=== PATIENT | male | born 1985 | race Caucasian/White ===

== ENCOUNTER 2016-03-04 19:21 | Emergency (ER) | payer OTHER, SELFPAY ==
[2016-03-04] MEDS ORDERED: Naproxen 500 MG TAB ONE (20:18)
[2016-03-04] MEDS ORDERED: Oxymetazoline HCl 0.05% ( 15 ML ) ONE (20:18)
[2016-03-04] MEDS ORDERED: AMOXicillin 250 MG CAP ONE (20:18)
--- NOTE | 2016-03-04 20:39 | ERRECORD ---
[facility] EMERGENCY RECORD HPI COUGH (20:21 LLDO) CHIEF COMPLAINT: Patient presents for evaluation of cough, productive of yellow sputum, Patient presents for evaluation of fever face pain and pressure, sore throat, feverish. HISTORIAN: History provided by patient, going on for 2 weeks. LOCATION: Symptoms are generalized. QUALITY: Denies tightness, Denies wheezing, Pain is dull in nature, described as aching. SEVERITY: Maximum severity of symptoms moderate, Currently symptoms are moderate. TIME COURSE: Gradual onset of symptoms, There has been no change in the patient's symptoms over time, are constant. ASSOCIATED WITH: Associated symptoms reviewed, Associated with dyspnea on exertion, Associated with fever, Associated with nausea, Associated with upper respiratory infection, No associated wheezing, Associated with weakness. EXACERBATED BY: Patient's condition exacerbated by deep breaths, Patient's condition exacerbated by exercise, Patient's condition exacerbated by lying flat. RELIEVED BY: Patient's condition relieved by nothing. ROS (20:25 LLDO) CONSTITUTIONAL: Historian reports fatigue, reports fever. ENT: Historian reports sinus pain, reports sore throat. CARDIOVASCULAR: Historian reports dyspnea on exertion. RESPIRATORY: Historian reports cough, reports sputum. described as thick, Historian denies wheezing, yellow. GI: Historian reports nausea. MUSCULOSKELETAL: Historian reports myalgias. NOTES: All systems reviewed, negative except as described above. PAST MEDICAL HISTORY MEDICAL HISTORY: No past medical history, Flu vaccine not up to date, Tetanus immunization up to date, Pneumococcal vaccine not up to date. (19:31 MDEB) MALE SURGICAL HISTORY: Patient has no surgical history. (19:31 MDEB) PSYCHIATRIC HISTORY: Notes: DENIES. (19:31 MDEB) SOCIAL HISTORY: Patient denies alcohol use, Patient denies drug use, Patient is a former tobacco user, smoked cigarettes, Tobacco history notes: QUIT , Patient denies alcohol use, Patient denies drug use, Patient is a former tobacco user, smoked cigarettes, Patient quit smoking in the past year, Lives at home, alone. (19:31 MDEB) FAMILY HISTORY: Notes: MATERNAL CARDIAC HISTORY. (19:31 MDEB) &a-1R&a+25V*p+0X*p3464A*c202B*c15G*c2P*p-0X&a-25V&a+1R Name: Toni Whitmore : 1985 M31 MedRec: [id number] AcctNum: [id number] Prepared: FriMar 04, 2016 20:48 by Interface Page 1 of 3 pMD [facility] EMERGENCY RECORD NOTES: Nursing records reviewed, Agree with nursing records, Medication list reviewed. (20:28 LLDO) KNOWN ALLERGIES No Known Drug Allergies CURRENT MEDICATIONS No recorded medications VITAL SIGNS (19:28 MDEB) VITAL SIGNS: BP: 138/73, Pulse: 78, Resp: 20, Temp: 97.8 (Tympanic), Pain: 4, O2 sat: 99 on Room Air, Time: 03/04/2016 19:28. PHYSICAL EXAM (20:26 LLDO) CONSTITUTIONAL: Vital Signs Reviewed, Patient afebrile, Pulse normal, Blood pressure normal, Respiratory rate normal, Normal pulse oximetry, Patient appears, uncomfortable, Patient appears, in moderate pain distress, Patient alert and oriented to person, place and time, Nursing notes reviewed. ENT: Ear exam normal, Nose exam normal, Pharynx, injected bilaterally, with swelling bilaterally, Uvula exam normal, Sinus exam included findings of frontal sinuses with, tenderness bilaterally, mild pain, Maxillary sinuses with, tenderness on the left, erythema on the left, moderately severe. NECK: Neck exam included findings of normal range of motion, Trachea midline, Thyroid normal, no meningeal signs, Cervical adenopathy, diffuse, multiple nodes, tender, swollen. RESPIRATORY CHEST: Respiratory exam included findings of no respiratory distress, No wheezing, Rales present, Chest exam included findings of chest movement symmetrical, Chest expansion equal, RALES MILD AND SCATTERED. MEDICATION ADMINISTRATION SUMMARY Drug Name: *Afrin (oxymetazoline), Dose Ordered: 1-2 puff(s), Route: Nares Both, Status: Given, Time: 20:03/04/2016, Drug Name: Naprosyn, Dose Ordered: 500 mg, Route: Oral, Status: Given, Time: 20:03/04/2016, Drug Name: amoxicillin, Dose Ordered: 500 mg, Route: Oral, Status: Given, Time: 20:03/04/2016, *Additional information available in notes, Detailed record available in Medication Service section. PROBLEM LIST No recorded problems DIAGNOSIS (20:18 LLDO) &a-1R&a+25V*p+0X*c7097U*c202B*c15G*c2P*p-0X&a-25V&a+1R Name: Toni Whitmore : 1985 [facility] [place]: [id number] AcctNum: [id number] Prepared: FriMar 04, 2016 20:48 by Interface Page 2 of 3 pMD [facility] EMERGENCY RECORD FINAL: PRIMARY: ACUTE SINUSITIS UNSPECIFIED. PRESCRIPTION (20:20 LLDO) ibuprofen: TABLET : 800 mg : ORAL : Quantity: 1 Unit: tab(s) Route: ORAL Schedule: every 6 hours PRN Dispense: 100 Unit: tab(s) May substitute. Refills: 1 . amoxicillin: CAPSULE (HARD, SOFT, ETC.) : 500 mg : ORAL : Quantity: 1 Unit: cap(s) Route: ORAL Schedule: 3 times a day Dispense: 30 May substitute. Refills: No Refills . DISPOSITION PATIENT: Disposition Type: Discharge, Disposition: *Discharge Home. (20:18 ANNIKA) Patient left the department. (20:42 BRUNO) Yadav: BRUNO=ADRIANA Camp, Ry ROBLERO=MD Lauren, Jimmy HOFFMANEB=ADRIANA Chu, Cecelia &a-1R&a+25V*p+0X*r2091S*c202B*c15G*c2P*p-0X&a-25V&a+1R Name: Toni Whitmore : 1985 [facility] [place]: [id number] AcctNum: [id number] Prepared: FriMar 04, 2016 20:48 by Interface Page 3 of 3 pMD MTDD
--- NOTE | 2016-03-04 20:44 | PICIS ---
[facility] EMERGENCY RECORD TRIAGE (19:31 MDEB) PATIENT: NAME: Toni Whitmore, AGE: 31, GENDER: male, : Fri1985, TIME OF GREET: FriMar 04, 2016 19:22, PREFERRED LANGUAGE: [place]ican, RACE: WHITE, ETHNICITY: Not or , FALL RISK: NO, ECODE BILLING MAP: [facility] ER, SSN: [id number], Zip Code: [address], KG WEIGHT: 95.25, PHONE: , , , PERSON ID: [id number], PCP: NO PCP. (19:31 MDEB) TRIAGE NOTES: ST, FEVER, PRODUCTIVE COUGH, CONGESTION. (19:31 MDEB) COMPLAINT: FEVER, COUGH, SORE THROAT. (19:31 MDEB) ADMISSION: URGENCY: 4 Non Urgent, ADMISSION SOURCE: Home, TRANSPORT: Walk-in, BED: TRIAGE. (19:31 MDEB) PAIN: Patient complains of pain described as, aching, on a scale 0-10 patient rates pain as 3, Location FACIAL PAIN. (19:31 MDEB) IMMUNIZATIONS: Tetanus immunization up to date. (19:31 MDEB) TRIAGE SCREENING: Patient denies suicidal ideation, Patient denies presence of domestic violence. (19:31 MDEB) PROVIDERS: TRIAGE NURSE: Cecelia Chu RN. (19:31 MDEB) VITAL SIGNS: BP 138/73, Pulse 78, Resp 20, Temp 97.8, (Tympanic), Pain 4, O2 Sat 99, on Room Air, Time 03/04/2016 19:28. (19:28 MDEB) PREVIOUS VISIT ALLERGIES: No Known Drug Allergies. (19:31 MDEB) KNOWN ALLERGIES No Known Drug Allergies CURRENT MEDICATIONS No recorded medications VITAL SIGNS (19:28 MDEB) VITAL SIGNS: BP: 138/73, Pulse: 78, Resp: 20, Temp: 97.8 (Tympanic), Pain: 4, O2 sat: 99 on Room Air, Time: 03/04/2016 19:28. NURSING ASSESSMENT: ENT (20:43 BGAL) CONSTITUTIONAL: Patient arrives ambulatory, Gait steady, History obtained from patient, Patient appears comfortable, Patient cooperative, Patient alert, Oriented to person, place and time, Skin warm, Skin dry, Skin normal in color, Mucous membranes pink, Mucous membranes moist, Patient complains of sinus pressuer. PAIN: aching pain, frontal sinuses, Patient rates pain as 0 out of 10, Pain exacerbated by nothing, Nothing has been tried to alleviate the pain. ENT: Ear assessment findings include ear normal to inspection, Nasal assessment findings include nose normal to inspection, Sinuses normal, Nasal mucosa normal, Mouth and throat assessment findings include mouth inspection normal, Uvula normal, Tonsils normal, Mucous membranes pink, and moist, Able to swallow, Speech normal. RESPIRATORY/CHEST: Breath sounds clear, Respiratory assessment findings include respiratory effort easy, Respirations regular, &a-1R&a+25V*p+0X*g9119G*c202B*c15G*c2P*p-0X&a-25V&a+1R Name: Toni Whitmore : 1985 M31 MedRec: [id number] AcctNum: [id number] Prepared: FriMar 04, 2016 20:55 by Interface Page 1 of 5 pMD [facility] EMERGENCY RECORD Conversing normally, Neck and chest exam findings include trachea midline, Chest expansion equal, Chest movement symmetrical. SAFETY: Side rails up, Cart/Stretcher in lowest position, Family at bedside, Call light within reach, Hospital ID band on. NURSING PROCEDURE: DISCHARGE NOTE (20:35 BGAL) DISCHARGE: Patient discharged to home, ambulating without assistance, driving self, unaccompanied, Summary of Care printed/ provided, Patient requested and was provided an electronic copy of Discharge Instructions, Transition record given to patient, Discharge instructions given to patient, Simple or moderate discharge teaching performed, Prescriptions given and instructions on side effects given, Medication reconciliation form given, Above person(s) verbalized understanding of discharge instructions and follow-up care. BELONGINGS: Belongings remain with patient, Valuables remain with patient. MEDICATION ADMINISTRATION SUMMARY Drug Name: *Afrin (oxymetazoline), Dose Ordered: 1-2 puff(s), Route: Nares Both, Status: Given, Time: 20:21 03/04/2016, Drug Name: Naprosyn, Dose Ordered: 500 mg, Route: Oral, Status: Given, Time: 20:21 03/04/2016, Drug Name: amoxicillin, Dose Ordered: 500 mg, Route: Oral, Status: Given, Time: 20:21 03/04/2016, *Additional information available in notes, Detailed record available in Medication Service section. MEDICATION SERVICE (20:21 LLDO) Afrin (oxymetazoline): Order: Afrin (oxymetazoline) (oxymetazoline HCl) - Dose: 1-2 puff(s) : Nares Both Schedule: Now Notes: use morning and bedtime for 4 days and then just at bedtime until better Ordered by: Jimmy Aguilar MD Entered by: Jimmy Aguilar MD FriMar 04, 2016 20:17 , Acknowledged by: Mirta Infante RN FriMar 04, 2016 20:17 Documented as given by: Mirta Infante RN FriMar 04, 2016 20:21 Patient, Medication, Dose, Route and Time verified prior to administration. Amount given: 1 spray each nare, Site: Medication administered bilateral nares, Instructed to blow nose prior to administration, Correct patient, time, route, dose and medication confirmed prior to administration, Patient advised of actions and side-effects prior to administration, Allergies confirmed and medications reviewed prior to administration, Administered by patient, Advised not to ambulate without assistance, Patient in position of comfort, Side rails up, Cart in lowest position, Family at bedside. amoxicillin: Order: amoxicillin (amoxicillin trihydrate) - Dose: 500 mg : Oral &a-1R&a+25V*p+0X*b3939S*c202B*c15G*c2P*p-0X&a-25V&a+1R Name: Toni Whitmore : 1985 M31 MedRec: [id number] AcctNum: [id number] Prepared: FriMar 04, 2016 20:55 by Interface Page 2 of 5 pMD [facility] EMERGENCY RECORD Schedule: Now Ordered by: Jimmy Aguilar MD Entered by: Jimmy Aguilar MD FriMar 04, 2016 20:14 , Acknowledged by: Mirta Infante RN FriMar 04, 2016 20:16 Documented as given by: Mirta Infante RN FriMar 04, 2016 20:21 Patient, Medication, Dose, Route and Time verified prior to administration. Amount given: 500 mg, Site: Medication administered P.O., Correct patient, time, route, dose and medication confirmed prior to administration, Patient advised of actions and side-effects prior to administration, Allergies confirmed and medications reviewed prior to administration, Patient in position of comfort, Side rails up, Cart in lowest position, Family at bedside. Naprosyn: Order: Naprosyn (naproxen) - Dose: 500 mg : Oral Schedule: Now Ordered by: Jimmy Aguilar MD Entered by: Jimmy Aguilar MD FriMar 04, 2016 20:14 , Acknowledged by: Mirta Infante RN FriMar 04, 2016 20:16 Documented as given by: Mirta Infante RN FriMar 04, 2016 20:21 Patient, Medication, Dose, Route and Time verified prior to administration. Amount given: 500 mg, Site: Medication administered P.O., Correct patient, time, route, dose and medication confirmed prior to administration, Patient advised of actions and side-effects prior to administration, Allergies confirmed and medications reviewed prior to administration, Patient in position of comfort, Side rails up, Cart in lowest position, Family at bedside. HPI COUGH (20:21 LLDO) CHIEF COMPLAINT: Patient presents for evaluation of cough, productive of yellow sputum, Patient presents for evaluation of fever face pain and pressure, sore throat, feverish. HISTORIAN: History provided by patient, going on for 2 weeks. LOCATION: Symptoms are generalized. QUALITY: Denies tightness, Denies wheezing, Pain is dull in nature, described as aching. SEVERITY: Maximum severity of symptoms moderate, Currently symptoms are moderate. TIME COURSE: Gradual onset of symptoms, There has been no change in the patient's symptoms over time, are constant. ASSOCIATED WITH: Associated symptoms reviewed, Associated with dyspnea on exertion, Associated with fever, Associated with nausea, Associated with upper respiratory infection, No associated wheezing, Associated with weakness. EXACERBATED BY: Patient's condition exacerbated by deep breaths, Patient's condition exacerbated by exercise, Patient's condition exacerbated by lying flat. RELIEVED BY: Patient's condition relieved by nothing. &a-1R&a+25V*p+0X*y5556V*c202B*c15G*c2P*p-0X&a-25V&a+1R Name: Toni Whitmore : 1985 [facility] [place] MedRec: [id number] AcctNum: [id number] Prepared: FriMar 04, 2016 20:55 by Interface Page 3 of 5 pMD [facility] EMERGENCY RECORD ROS (20:25 LLDO) CONSTITUTIONAL: Historian reports fatigue, reports fever. ENT: Historian reports sinus pain, reports sore throat. CARDIOVASCULAR: Historian reports dyspnea on exertion. RESPIRATORY: Historian reports cough, reports sputum. described as thick, Historian denies wheezing, yellow. GI: Historian reports nausea. MUSCULOSKELETAL: Historian reports myalgias. NOTES: All systems reviewed, negative except as described above. PAST MEDICAL HISTORY MEDICAL HISTORY: No past medical history, Flu vaccine not up to date, Tetanus immunization up to date, Pneumococcal vaccine not up to date. (19:31 MDEB) MALE SURGICAL HISTORY: Patient has no surgical history. (19:31 MDEB) PSYCHIATRIC HISTORY: Notes: DENIES. (19:31 MDEB) SOCIAL HISTORY: Patient denies alcohol use, Patient denies drug use, Patient is a former tobacco user, smoked cigarettes, Tobacco history notes: QUIT , Patient denies alcohol use, Patient denies drug use, Patient is a former tobacco user, smoked cigarettes, Patient quit smoking in the past year, Lives at home, alone. (19:31 MDEB) FAMILY HISTORY: Notes: MATERNAL CARDIAC HISTORY. (19:31 MDEB) NOTES: Nursing records reviewed, Agree with nursing records, Medication list reviewed. (20:28 LLDO) PHYSICAL EXAM (20:26 LLDO) CONSTITUTIONAL: Vital Signs Reviewed, Patient afebrile, Pulse normal, Blood pressure normal, Respiratory rate normal, Normal pulse oximetry, Patient appears, uncomfortable, Patient appears, in moderate pain distress, Patient alert and oriented to person, place and time, Nursing notes reviewed. ENT: Ear exam normal, Nose exam normal, Pharynx, injected bilaterally, with swelling bilaterally, Uvula exam normal, Sinus exam included findings of frontal sinuses with, tenderness bilaterally, mild pain, Maxillary sinuses with, tenderness on the left, erythema on the left, moderately severe. NECK: Neck exam included findings of normal range of motion, Trachea midline, Thyroid normal, no meningeal signs, Cervical adenopathy, diffuse, multiple nodes, tender, swollen. &a-1R&a+25V*p+0X*k8716G*c202B*c15G*c2P*p-0X&a-25V&a+1R Name: Toni Whitmore : 1985 M31 MedRec: [id number] AcctNum: [id number] Prepared: FriMar 04, 2016 20:55 by Interface Page 4 of 5 pMD [facility] EMERGENCY RECORD RESPIRATORY CHEST: Respiratory exam included findings of no respiratory distress, No wheezing, Rales present, Chest exam included findings of chest movement symmetrical, Chest expansion equal, RALES MILD AND SCATTERED. EVENTS TRANSFER: Triage to Emergency Triage. (FriMar 04, 2016 19:31 MDEB) Emergency Triage to Main ED -03. (19:34 MDEB) Removed from Emergency Main ED -03. (20:42 AGAN) PROBLEM LIST No recorded problems DIAGNOSIS (20:18 LLDO) FINAL: PRIMARY: ACUTE SINUSITIS UNSPECIFIED. DISPOSITION PATIENT: Disposition Type: Discharge, Disposition: *Discharge Home. (20:18 LLDO) Patient left the department. (20:42 AGAN) INSTRUCTION (20:21 LLDO) DISCHARGE: SINUSITIS, ABX TX. FOLLOWUP: Follow up with Primary Care Physician in 7-10 days. SPECIAL: Follow-up with your PCP. PRESCRIPTION (20:20 LLDO) ibuprofen: TABLET : 800 mg : ORAL : Quantity: 1 Unit: tab(s) Route: ORAL Schedule: every 6 hours PRN Dispense: 100 Unit: tab(s) May substitute. Refills: 1 . amoxicillin: CAPSULE (HARD, SOFT, ETC.) : 500 mg : ORAL : Quantity: 1 Unit: cap(s) Route: ORAL Schedule: 3 times a day Dispense: 30 May substitute. Refills: No Refills . IMAGING (20:37 BGAL) *DISCHARGE INSTRUCTIONS RECEIPT: Image captured from scanner. *SUPPLY CHARGE SHEET: Image captured from scanner. ADMIN (20:29 LLDO) DIGITAL SIGNATURE: MD Aguilar Lloyd. Yadav: AGAN=ADRIANA Camp, Ry BGAL=ADRIANA Infante, Mirta LLDO=MD Aguilar Lloyd MDEB=ADRIANA Chu, Cecelia &a-1R&a+25V*p+0X*g3287T*c202B*c15G*c2P*p-0X&a-25V&a+1R Name: Toni Whitmore : 1985 [facility] [place] MedRec: [id number] AcctNum: [id number] Prepared: FriMar 04, 2016 20:55 by Interface Page 5 of 5 pMD [facility] MEDICATION RECONCILIATION You were seen in the Emergency Department on: FriMar 04, 2016 KNOWN ALLERGIES No Known Drug Allergies MEDICATIONS GIVEN WHILE IN THE EMERGENCY DEPARTMENT amoxicillin (amoxicillin trihydrate) - Dose: 500 milligram(s) : Oral Naprosyn (naproxen) - Dose: 500 milligram(s) : Oral Afrin (oxymetazoline) (oxymetazoline HCl) - Dose: 1-2 puff(s) : Nares Both Notes from the emergency department Reviewed with patient PRESCRIPTIONS (2) Printed (2) ibuprofen : TABLET : 800 mg : ORAL Quantity: 1, Unit: tab(s), Route: ORAL, Schedule: every 6 hours PRN, Dispense: 100 Unit: tab(s) &a-1R&a+25V*p+0X*b5075Y*c202B*c15G*c2P*p-0X&a-25V&a+1R Name: Toni Whitmore : 1985 1 MedRec: [id number] AcctNum: [id number] Prepared: FriMar 04, 2016 20:55 by Interface pMD [facility]
== END 2016-03-04 20:35 | disposition home or self-care (01) ==
LOC: MADERS 19:21
DX: J01.90 Acute sinusitis, unspecified (principal); Z87.891 Personal history of nicotine dependence
CPT/HCPCS: 99283

== ENCOUNTER 2017-09-02 21:34 | Emergency (ER) | payer SELFPAY ==
[~2017-09-02 21:34] MED LIST: Donnatal Elixir 16.2 MG/5 ML UDCUP ONE; Iopamidol 370 76% 100 ML VIAL ONE; Sodium Chloride 0.9% 1,000 ML BAG ONE; Sodium Chloride 0.9% 100 ML BAG ONE
[2017-09-02] MEDS ORDERED: Morphine 4 MG/ML VIAL ONE (22:07)
[2017-09-02] MEDS ORDERED: Ondansetron HCl/PF 4 MG/2 ML Vial ONE (22:08)
[2017-09-02 22:28] LABS: ALT (SGPT) 11 U/L (8-55); AST (SGOT) 14 U/L (5-34); Albumin 4.3 g/dL (3.5-5.0); Alkaline Phosphatase 70 U/L (40-150); Anion Gap 16 mmol/L (10-20); BUN (Urea Nitrogen) 14 mg/dL (8.9-20.6); Bilirubin, Total 0.5 mg/dL (0.2-1.2); Calc. Creatinine Clearance 0 mL/min (70-130); Calcium 9.4 mg/dL (7.8-10.44); Carbon Dioxide 21 mmol/L (22-29); Chloride 102 mmol/L (98-107); Estimated GFR-MDRD 69; Globulin 3.2 g/dL (2.4-3.5); Glucose 137 mg/dL (70-105); Potassium 3.3 mmol/L (3.5-5.1); Protein, Total 7.5 g/dL (6.0-8.3); Sodium 136 mmol/L (136-145)
[2017-09-02 22:33] LABS: Hemoglobin 14.4 g/dL (14.0-18.0); Manual Diff?? YES; Mean Corpuscular HGB CONC 33.3 g/dL (32.0-36.0); Mean Corpuscular Hemoglobin 29.7 pg (27.0-31.0); Mean Corpuscular Volume 89.1 fL (78.0-98.0); Mean Platelet Volume 8.1 fL (7.4-10.4); Platelet Count 196 thou/uL (130-400); RBC Distribution Width 12.8 % (11.5-14.5); Red Blood Cell (RBC) Count 4.85 mill/uL (4.70-6.10); White Blood Cell (WBC) Count 11.6 thou/uL (4.8-10.8)
[2017-09-02 22:34] LABS: #Basophils 0.1 thou/uL (0.0-0.2); #Monocytes 1.2 thou/uL (0.11-0.59); #Neutrophils 9.1 thou/uL (1.40-6.50); %Basophils 0.5 % (0.0-1.0); %Eosinophils 0.1 % (0.0-10.0); %Lymphocytes 10.6 % (21.0-51.0); %Monocytes 10.4 % (0.0-10.0); %Neutrophils 78.4 % (42.0-75.0); Band 2 % (5-11); Lymphocytes 8 % (21-51); MDiff Complete? YES; Monocytes 10 % (0-10); Neutrophil 78 % (42-75); Reactive Lymphocytes 2 % (0-10)
[2017-09-02 22:35] LABS: PLT Morphology Comment Appears Adequate; RBC Morphology Normal
--- NOTE | 2017-09-02 22:53 | CT ---
CT ABDOMEN WITHOUT CONTRAST PELVIC CT WITHOUT CONTRAST 09/02/17 HISTORY: Fever. Nausea. Pain. COMPARISON: None. FINDINGS: ABDOMEN CT: Minimal atelectasis in the lung bases. Normal heart size. No pericardial effusion. Descending thoraci c aorta and abdominal aorta have a normal caliber. No periaortic fat stranding. Symmetric attenuation of the psoas muscles. Limited evaluation of the solid organs by the lack of IV contrast. Grossly no solid organ abnormality . Unremarkable gallbladder. Bilaterally, no hydronephrosis, nephrolithiasis or perinephric fat stranding. Bilateral ureters have a normal caliber. No hydroureter, periureteral fat stranding or ureterolithiasis. Mildly enlarged lym ph nodes in the right lower quadrant. [place] Attendant lymph node measures 1.2 x 0.5 cm. No free air or free fluid in the mesentery. Limited evaluation of the alimentary canal due to lack of oral contrast . Gastric mucosa and duodenum are unremarkable. Multiple normal caliber small bowel loops, with the e xception of the terminal ileum/distal ileum. There is dilatation in this region with mild mucosal pro minence and serosal enhancement. There is mild hypervascularity un the adjacent mesentery with associ ated lymphadenopathy as described above. An infectious/inflammatory process is favored. Normal calibe r appendix is noted. Colon demonstrates fecal material. No evidence of colonic obstruction. No eviden ce of infection or inflammation. PELVIC CT: No mass, lymphadenopathy, free air, or free fluid. Decompressed urinary bladder. No lytic or blastic lesion of the osseous structures. IMPRESSION: Inflammatory change involving the distal ileum/terminal ileum. Based upon location, an inflammatory b owel syndrome would be considered. An infectious process cannot be completely excluded at this time. POS: [facility]
[2017-09-02] MEDS ORDERED: Pantoprazole 40 MG VIAL ONE (23:05)
[2017-09-02 23:27] LABS: Bilirubin Negative (Negative); Blood, Urine Negative (Negative); Clarity Clear (Clear); Glucose, Urine (Dipstick) Negative (Negative); Leukocyte Negative (Negative); Nitrite Negative (Negative); Protein, Urine (Dipstick) Negative (Neg-Trace); pH, Urine 5.5 (5.0-9.0)
[2017-09-03] MEDS ORDERED: Donnatal Elixir 16.2 MG/5 ML UDCUP ONE (02:00)
[2017-09-03] MEDS ORDERED: Mag-Al Plus 1200 MG/1200 MG/120 MG/30 ML UDCUP ONE (02:01)
[2017-09-03] MEDS ORDERED: Lidocaine Viscous Sol 2% 15 ml UD Cup ONE (02:01)
[2017-09-03] MEDS ORDERED: HYDROcodone/Acetaminophen 5/325 mg Tablet ONE (02:02)
[2017-09-03] MEDS ORDERED: Promethazine 25 MG TAB ONE (02:02)
--- NOTE | 2017-09-03 08:43 | CT ---
PRELIMINARY REPORT/[facility]/EMERGENTY AFTER-HOURS PROCEDURE EXAM: CT Abdomen and Pelvis With Intravenous Contrast CLINICAL HISTORY: 32 years old, male; Pain; Abdominal pain; Flank; Right lower quadrant (rlq); Patient HX: Pt has rlq p ain with fever and nausea. R/O appy TECHNIQUE: Axial computed tomography images of the abdomen and pelvis with intravenous contrast. All CT scans at this facility use at least one of these dose optimization techniques: automated exposure control; mA and/or kV adjustment per patient size (includes targeted exams where dose is matched to clinical indication); or iterative reconstruction. CONTRAST: 96 mL of ISOVUE 370 administered intravenously. COMPARISON: No relevant prior studies available. FINDINGS: The lung bases are clear. Possible small hiatal hernia. Moderate mucosal/wall thickening involving the terminal and distal ileum. While nonspecific, this lik nathalie represents some type of inflammatory bowel disease,(especially Crohn's disease), or other inflamm atory bowel process/enteritis. Please correlate clinically. Mild surrounding edema/inflammation. No significant surrounding fluid. Possibly some mild mucosal thickening involving the cecum/ascending colon. Associated colitis might b e considered. Several mildly to moderately enlarged right lower quadrant mesenteric lymph nodes. No free air, ascites, or significant bowel distention. Possibility of slightly thickened mucosa/wall in the distal antrum of the stomach. This is a nonspeci fic appearance, and could be transient on CT, but could also represent evidence for gastritis or pept ic ulcer disease. Please correlate clinically. No definite gallbladder abnormality by CT. No biliary tree dilation. Possible very small, subcentimeter right renal cyst. No hydronephrosis of either kidney. No visible ureteral calculus. Unremarkable appearance of the liver, spleen, adrenal glands, and pancreas. No evidence for abdominal aortic aneurysm. No retroperitoneal adenopathy. CT pelvis: The appendix is visualized and appears normal. There are no CT findings to strongly suggest diverticulitis. No abnormal mass or fluid collection in the pelvis. IMPRESSION: Moderate mucosal/wall thickening involving the terminal and distal ileum. See above details/discussio n. Possibly some mild mucosal thickening involving the cecum/ascending colon. Associated colitis might b e considered. No free air or bowel distention. No evidence for significant bowel obstruction. Possible thickened mucosa/wall in the distal stomach, see above discussion. Normal appendix. No diverticulitis. Other findings discussed above. Thank you for allowing us to participate in the care of your patient. Dictated and Authenticated by: Natanael Varela MD 09/03/2017 1:55 AM Central Time ([place] & [place]) FINAL REPORT CT ABDOMEN AND PELVIS WITH CONTRAST: HISTORY: Abdominal pain. Fever and nausea. COMPARISON: CT abdomen and pelvis 09/03/17 without contrast. FINDINGS: Lung bases are clear. No pericardial effusion. There is abnormal inflammation and thickening of the terminal ileum. There is also some hyperemia of the cecal apex. Low-grade submucosal fatty infiltration of the cecum. The appendix is visualized a nd is normal. Mild increased mesenteric fat of the cecum with mildly prominent ileocolic lymph nodes. Increased mesenteric fat of the sigmoid colon is present. No evidence for bowel obstruction. The spleen, pancreas, and gallbladder are unremarkable. No hydronephrosis. IMPRESSION: 1. Findings suggesting terminal ileitis with submucosal fatty infiltration of the cecum, likely sequ elae of chronic inflammatory bowel disease such as Crohn's. 2. Normal appendix. CODE QA POS: [facility]
== END 2017-09-03 02:14 | disposition home or self-care (01) ==
LOC: MADERS 21:34
DX: R10.9 Unspecified abdominal pain (principal); R11.0 Nausea; F31.9 Bipolar disorder, unspecified; Z87.891 Personal history of nicotine dependence; Z79.899 Other long term (current) drug therapy
CPT/HCPCS: 74176; 74177; 80053; 81003; 85025; 96361; 96365; 96375; C9113; J2270; J2405; J7050

== ENCOUNTER 2018-10-18 16:31 | Emergency (ER) | payer SELFPAY ==
--- NOTE | 2018-10-18 17:08 | RAD ---
EXAM: 2 views of the left hip HISTORY: Left hip pain COMPARISON: None FINDINGS: 2 views of the left hip shows no evidence of acute fracture or dislocation. No degenerative changes are seen. No soft tissue swelling is present. IMPRESSION: No evidence of acute osseous abnormality.
--- NOTE | 2018-10-18 17:21 | RAD ---
EXAM: 2 views of the left femur HISTORY: Leg pain COMPARISON: None FINDINGS: There is no evidence of acute fracture or dislocation. No soft tissue swelling is seen. No degenerative changes are seen in the hip. IMPRESSION: No evidence of acute osseous abnormality.
--- NOTE | 2018-10-18 17:22 | RAD ---
EXAM: 3 views of the left ankle HISTORY: Ankle pain after trauma COMPARISON: None FINDINGS: 3 views of the left ankle shows no evidence of acute fracture or dislocation. Mild lateral soft tissue swelling is seen. No degenerative changes are present. IMPRESSION: No evidence of acute osseous abnormality.
[2018-10-18 17:26] LABS: #Basophils 0.1 thou/uL (0.0-0.2); #Eosinphils 0.4 thou/uL (0.0-0.7); #Lymphocytes 2.9 thou/uL (1.20-3.40); #Monocytes 0.9 thou/uL (0.11-0.59); #Neutrophils 6.5 thou/uL (1.40-6.50); %Basophils 0.7 % (0.0-1.0); %Eosinophils 3.3 % (0.0-10.0); %Lymphocytes 26.7 % (21.0-51.0); %Monocytes 8.5 % (0.0-10.0); %Neutrophils 60.9 % (42.0-75.0); Hemoglobin 13.1 g/dL (14.0-18.0); Mean Corpuscular HGB CONC 33.9 g/dL (32.0-36.0); Mean Corpuscular Hemoglobin 31.3 pg (27.0-31.0); Mean Corpuscular Volume 92.4 fL (78.0-98.0); Platelet Count 257 thou/uL (130-400); RBC Distribution Width 11.9 % (11.5-14.5); Red Blood Cell (RBC) Count 4.17 mill/uL (4.70-6.10); White Blood Cell (WBC) Count 10.7 thou/uL (4.8-10.8)
[2018-10-18] MEDS ORDERED: Ketorolac Tromethamine 30 MG/ML VIAL ONE (17:30)
[2018-10-18] MEDS ORDERED: Sodium Chloride 0.9% 1,000 ML ONE (17:30)
[2018-10-18 17:42] LABS: ALT (SGPT) Less than 7 U/L (8-55); AST (SGOT) 15 U/L (5-34); Albumin 4.3 g/dL (3.5-5.0); Alcohol Less than 10 mg/dL (Less than 10); Alkaline Phosphatase 82 U/L (40-150); Anion Gap 15 mmol/L (10-20); BUN (Urea Nitrogen) 16 mg/dL (8.9-20.6); Bilirubin, Total 0.2 mg/dL (0.2-1.2); Calc. Creatinine Clearance 0 mL/min (70-130); Calcium 9.6 mg/dL (7.8-10.44); Carbon Dioxide 25 mmol/L (22-29); Chloride 106 mmol/L (98-107); Estimated GFR-MDRD 73; Globulin 3.1 g/dL (2.4-3.5); Glucose 105 mg/dL (70-105); Potassium 4.3 mmol/L (3.5-5.1); Protein, Total 7.4 g/dL (6.0-8.3); Sodium 142 mmol/L (136-145)
== END 2018-10-18 18:13 | disposition home or self-care (01) ==
LOC: MADERS 16:31
DX: S93.402A Sprain of unspecified ligament of left ankle, initial encounter (principal); S70.02XA Contusion of left hip, initial encounter; F31.9 Bipolar disorder, unspecified; F17.210 Nicotine dependence, cigarettes, uncomplicated; Z79.899 Other long term (current) drug therapy; V86.59XA Driver of other special all-terrain or other off-road motor vehicle injured in nontraffic accident, initial encounter
CPT/HCPCS: 36415; 80053; 80307; 85025; 94760; 96361; 96374; J1885; J7050

== ENCOUNTER 2019-12-22 20:57 | Emergency (ER) | payer SELFPAY ==
[~2019-12-22 20:57] MED LIST changes: -Donnatal Elixir 16.2 MG/5 ML UDCUP ONE; -Sodium Chloride 0.9% 1,000 ML BAG ONE; -Sodium Chloride 0.9% 100 ML BAG ONE
[2019-12-22 21:31] LABS: #Basophils 0.1 thou/uL (0.0-0.2); #Eosinphils 0.2 thou/uL (0.0-0.7); #Neutrophils 12.3 thou/uL (1.40-6.50); %Basophils 0.8 % (0.0-1.0); %Eosinophils 1.5 % (0.0-10.0); %Lymphocytes 17.7 % (21.0-51.0); %Monocytes 6.2 % (0.0-10.0); %Neutrophils 73.8 % (42.0-75.0); Mean Corpuscular HGB CONC 32.8 g/dL (32.0-36.0); Mean Corpuscular Hemoglobin 30.2 pg (27.0-31.0); Mean Corpuscular Volume 91.9 fL (78.0-98.0); Mean Platelet Volume 6.2 fL (7.4-10.4); Platelet Count 466 thou/uL (130-400); RBC Distribution Width 11.6 % (11.5-14.5); Red Blood Cell (RBC) Count 4.31 mill/uL (4.70-6.10); White Blood Cell (WBC) Count 16.7 thou/uL (4.8-10.8)
[2019-12-22] MEDS ORDERED: Ondansetron PF 4 MG/2 ML Vial ONE (21:31)
[2019-12-22] MEDS ORDERED: Ketorolac Tromethamine 30 MG/ML VIAL ONE (21:31)
[2019-12-22] MEDS ORDERED: Sodium Chloride 0.9% 1,000 ML ONE (21:31)
[2019-12-22] MEDS ORDERED: Acetaminophen 500 MG TAB ONE (21:31)
[2019-12-22 22:08] LABS: ALT (SGPT) 65 U/L (8-55); AST (SGOT) 74 U/L (5-34); Albumin 3.9 g/dL (3.5-5.0); Alkaline Phosphatase 181 U/L (40-110); Anion Gap 17 mmol/L (10-20); BUN (Urea Nitrogen) 14 mg/dL (8.9-20.6); Bilirubin, Total 0.3 mg/dL (0.2-1.2); Calc. Creatinine Clearance 0 mL/min (70-130); Calcium 9.2 mg/dL (7.8-10.44); Carbon Dioxide 25 mmol/L (22-29); Chloride 99 mmol/L (98-107); Estimated GFR-MDRD 85; Globulin 4.1 g/dL (2.4-3.5); Glucose 133 mg/dL (70-105); Lipase 25 U/L (8-78); Sodium 137 mmol/L (136-145)
--- NOTE | 2019-12-22 22:13 | CT ---
CT abdomen and pelvis with IV contrast HISTORY: Right lower quadrant pain. COMPARISON: 09/03/2017. FINDINGS: The lung bases are clear. Minimal pericardial fluid. A 0.7 cm cyst is present at the superior pole of the right kidney. There is a 0.2 cm calculus within a nondilated calyx at the inferior pole of the right kidney. Nonenlarged, nonspecific lymph nodes are present throughout the retroperitoneum. There is minimal wendy e fluid in the dependent portion of the pelvis and fat stranding throughout the lower pelvis, centered around the prostate gland which has a heterogeneous appearance. A lobular low-density collec tion within the right side of the prostate gland is 2.7 cm x 2.1 cm greatest diameters. Seminal vesicles are enlarged and appear inflamed. No evidence of bowel obstruction or inflammation. Appendix is unremarkable. IMPRESSION : Pelvic inflammation involving and centered around the prostate gland. Fluid collection in the right s gemini of the prostate gland, 2.7 cm, may represent an abscess. Tiny nonobstructing right renal calculus.
[2019-12-22] MEDS ORDERED: cefTRIAXone\\ROCEPHIN 1 GM VIAL ONE (22:48)
[2019-12-22] MEDS ORDERED: Sodium Chloride 0.9% 100 ML ONE (22:48)
[2019-12-22] MEDS ORDERED: Sodium Chloride 0.9% 250 ML 250 ML ONE (22:48)
[2019-12-22] MEDS ORDERED: Azithromycin 500 MG VIAL ONE (22:48)
[2019-12-23 00:09] LABS: Clarity Cloudy (Clear); Leukocyte Small (Negative); Nitrite Negative (Negative); Protein, Urine (Dipstick) 30 mg/dL (Neg-Trace); pH, Urine 5.5 (5.0-9.0)
[2019-12-23 00:10] LABS: Bilirubin Negative (Negative); Blood, Urine Moderate (Negative); Glucose, Urine (Dipstick) Negative (Negative); Ketone, Urine Negative (Negative); Urobilinogen 0.2 mg/dL (Less than 2)
[2019-12-23 00:14] LABS: Bacteria/HPF 1+ HPF (None Seen); RBC/HPF 21-50 HPF (0-3); Squamous Epithelial 0-3 HPF (0-3); WBC/HPF 21-50 HPF (0-3)
== END 2019-12-22 23:07 | disposition short-term general hospital (02) ==
LOC: MADERS 20:57
DX: N50.811 Right testicular pain (principal); N41.9 Inflammatory disease of prostate, unspecified; N45.4 Abscess of epididymis or testis; F31.9 Bipolar disorder, unspecified; F17.210 Nicotine dependence, cigarettes, uncomplicated
CPT/HCPCS: 74177; 80053; 81003; 81015; 83690; 85025; 96374; 96375; J0456; J0696; J1885; J2405; J3490; J7050; Q9967

== ENCOUNTER 2020-06-10 02:12 | Emergency (ER) | payer OTHER, SELFPAY ==
[2020-06-10] MEDS ORDERED: Ketorolac Tromethamine 60 MG/2 ML VIAL ONE (02:23)
== END 2020-06-10 03:12 ==
LOC: MADERS 02:12
DX: S20.212A Contusion of left front wall of thorax, initial encounter (principal); F17.200 Nicotine dependence, unspecified, uncomplicated; Z79.899 Other long term (current) drug therapy; W18.09XA Striking against other object with subsequent fall, initial encounter
CPT/HCPCS: 96372; J1885

== ENCOUNTER 2020-10-30 15:05 | Emergency (ER) | payer SELFPAY ==
[2020-10-30 15:46] LABS: Bilirubin Negative (Negative); Blood, Urine Moderate (Negative); Clarity Cloudy (Clear); Glucose, Urine (Dipstick) Negative (Negative); Ketone, Urine Negative (Negative); Leukocyte Large (Negative); Nitrite Negative (Negative); Protein, Urine (Dipstick) 30 mg/dL (Neg-Trace); Urobilinogen 0.2 mg/dL (Less than 2)
[2020-10-30 15:47] LABS: Bacteria/HPF 2+ HPF (None Seen); RBC/HPF 21-50 HPF (0-3); Squamous Epithelial None Seen HPF (0-3); WBC/HPF Greater Than 50 HPF (0-3)
[2020-10-30] MEDS ORDERED: Lidocaine 1% 20 ML MDV ONE (15:54)
[2020-10-30] MEDS ORDERED: cefTRIAXone\\ROCEPHIN 1 GM VIAL ONE (15:54)
[2020-10-30] MEDS ORDERED: Azithromycin 250 MG TAB ONE (15:54)
[2020-11-02 21:38] LABS: Chlam.trachomatis by PCR,Urine Inconclusive (NotDetected)
== END 2020-10-30 16:32 | disposition home or self-care (01) ==
LOC: MADERS 15:05
DX: N34.1 Nonspecific urethritis (principal); F17.200 Nicotine dependence, unspecified, uncomplicated
CPT/HCPCS: 81003; 81015; 87086; 87491; 87591; 96372; 99283; J0696

== ENCOUNTER 2021-03-13 00:51 | Emergency (ER) | payer SELFPAY ==
[2021-03-13] MEDS ORDERED: Morphine 4 MG/ML VIAL ONE (01:30)
[2021-03-13] MEDS ORDERED: Ketorolac Tromethamine 30 MG/ML VIAL ONE (01:30)
[2021-03-13 01:35] LABS: #Basophils 0.1 thou/uL (0.0-0.2); #Eosinphils 0.2 thou/uL (0.0-0.7); #Lymphocytes 2.6 thou/uL (1.20-3.40); #Monocytes 0.8 thou/uL (0.11-0.59); #Neutrophils 6.7 thou/uL (1.40-6.50); %Basophils 0.7 % (0.0-1.0); %Eosinophils 1.8 % (0.0-10.0); %Lymphocytes 25.3 % (21.0-51.0); %Monocytes 7.4 % (0.0-10.0); %Neutrophils 64.7 % (42.0-75.0); Hemoglobin 12.4 g/dL (14.0-18.0); Mean Corpuscular Hemoglobin 31.2 pg (27.0-31.0); Mean Corpuscular Volume 91.8 fL (78.0-98.0); Mean Platelet Volume 6.4 fL (7.4-10.4); Platelet Count 268 thou/uL (130-400); RBC Distribution Width 11.8 % (11.5-14.5); Red Blood Cell (RBC) Count 3.96 mill/uL (4.70-6.10); White Blood Cell (WBC) Count 10.4 thou/uL (4.8-10.8)
[2021-03-13 01:49] LABS: ALT (SGPT) 7 U/L (8-55); AST (SGOT) 16 U/L (5-34); Alkaline Phosphatase 71 U/L (40-110); Anion Gap 12 mmol/L (10-20); BUN (Urea Nitrogen) 13 mg/dL (8.9-20.6); Bilirubin, Total Less than 0.2 mg/dL (0.2-1.2); Calc. Creatinine Clearance 0 mL/min (70-130); Calcium 8.9 mg/dL (7.8-10.44); Carbon Dioxide 26 mmol/L (22-29); Chloride 107 mmol/L (98-107); Globulin 2.8 g/dL (2.4-3.5); Glucose 128 mg/dL (70-105); Protein, Total 6.8 g/dL (6.0-8.3); Sodium 141 mmol/L (136-145)
[2021-03-13] MEDS ORDERED: Cephalexin 500 MG CAP ONE (02:05)
[2021-03-13] MEDS ORDERED: Sulfameth/Trimethoprim DS 800-160mg TAB ONE (02:05)
== END 2021-03-13 02:15 | disposition left against medical advice (07) ==
LOC: MADERS 00:51
DX: L03.116 Cellulitis of left lower limb (principal); F17.200 Nicotine dependence, unspecified, uncomplicated
CPT/HCPCS: 80053; 83605; 85025; 86140; 87040; 96374; 96375; J1885; J2270